=== PATIENT | male | born 2000 | race American Indian/Alaskan Native ===

== ENCOUNTER 2021-05-22 14:16 | Emergency (ER) | payer MEDICAID ==
--- NOTE | 2021-05-22 18:27 | Emergency Department Report ---
ED ENT HPI - General Chief complaint: Sore Throat Stated complaint: INFLAMMED TONSILS Time Seen by Provider: 05/22/21 18:16 Source: patient Mode of arrival: Ambulatory Limitations: No Limitations - History of Present Illness Initial comments: 20-year-old black male with no past medical history presents to the emergency department for evaluation of 1 day history of swollen tonsils and sore throat. He denies fever, headache, or abdominal pain, but states they the same symptoms every year. He states that it is painful to swallow. MD complaint: sore throat -: Gradual, days(s) (1) Location: throat Severity: moderate Severity scale (0 -10): 7 Consistency: constant Worsens with: swallowing Associated Symptoms: pain with swallowing, sore throat. denies: fever, cough, toothache, tinnitus, hearing loss, discharge from ear, rhinorrhea - Related Data Previous Rx's Medication Instructions Recorded Last Taken Type Amoxicillin [Trimox CAP] 500 mg PO BID 10 Days #20 capsule 05/22/21 Unknown Rx Nystas/Diphen/Xyl Visc/Mylanta 30 ml PO TID #420 udc 05/22/21 Unknown Rx [Magic Mouthwash] Prednisone [predniSONE 10 mg 10 mg PO .TAPER #1 tab 05/22/21 Unknown Rx (6-Day Pack, 21 Tabs)] Allergies Allergy/AdvReac Type Severity Reaction Status Date / Time No Known Allergies Allergy Verified 05/22/21 15:26 ED Dental HPI - General Chief complaint: Sore Throat Stated complaint: INFLAMMED TONSILS Time Seen by Provider: 05/22/21 18:16 Source: patient Mode of arrival: Ambulatory Limitations: No Limitations - Related Data Previous Rx's Medication Instructions Recorded Last Taken Type Amoxicillin [Trimox CAP] 500 mg PO BID 10 Days #20 capsule 05/22/21 Unknown Rx Nystas/Diphen/Xyl Visc/Mylanta 30 ml PO TID #420 udc 05/22/21 Unknown Rx [Magic Mouthwash] Prednisone [predniSONE 10 mg 10 mg PO .TAPER #1 tab 05/22/21 Unknown Rx (6-Day Pack, 21 Tabs)] Allergies Allergy/AdvReac Type Severity Reaction Status Date / Time No Known Allergies Allergy Verified 05/22/21 15:26 ED Review of Systems ROS: Stated complaint: INFLAMMED TONSILS Other details as noted in HPI Comment: All other systems reviewed and negative Constitutional: denies: chills, diaphoresis, fever, malaise, weakness Eyes: denies: eye pain, eye discharge, vision change ENT: throat pain. denies: ear pain, dental pain, hearing loss, epistaxis, congestion Respiratory: denies: cough, shortness of breath, SOB with exertion, SOB at rest Cardiovascular: denies: chest pain, palpitations, dyspnea on exertion, orthopnea, edema, syncope, paroxysmal nocturnal dyspnea Endocrine: no symptoms reported Gastrointestinal: denies: abdominal pain, nausea, vomiting, diarrhea, melena, hematochezia Genitourinary: denies: urgency, dysuria, frequency, hematuria, discharge, testicular pain Musculoskeletal: denies: back pain Skin: denies: rash, lesions Neurological: denies: headache, weakness, numbness, paresthesias Psychiatric: denies: anxiety, depression Hematological/Lymphatic: denies: easy bleeding, swollen glands ED Past Medical Hx - Medications Home Medications: Home Medications Medication Instructions Recorded Confirmed Last Taken Type Amoxicillin [Trimox CAP] 500 mg PO BID 10 Days #20 capsule 05/22/21 Unknown Rx Nystas/Diphen/Xyl Visc/Mylanta 30 ml PO TID #420 udc 05/22/21 Unknown Rx [Magic Mouthwash] Prednisone [predniSONE 10 mg 10 mg PO .TAPER #1 tab 05/22/21 Unknown Rx (6-Day Pack, 21 Tabs)] ED Physical Exam - General Limitations: No Limitations General appearance: alert, in no apparent distress - Head Head exam: Present: atraumatic, normocephalic - Eye Eye exam: Present: normal appearance. Absent: scleral icterus, conjunctival injection - ENT ENT exam: Absent: normal exam - Expanded ENT Exam Expanded Throat exam: Positive: tonsillar erythema, tonsillomegaly, tonsillar exudate. Negative: normal inspection (Erythema and exudate noted to posterior oropharynx), R peritonsillar mass, L peritonsillar mass - Neck Neck exam: Present: normal inspection, lymphadenopathy (Anterior cervical) - Respiratory Respiratory exam: Present: normal lung sounds bilaterally. Absent: respiratory distress, wheezes, rales, rhonchi, stridor, chest wall tenderness, accessory muscle use - Cardiovascular Cardiovascular Exam: Present: regular rate, normal heart sounds - GI/Abdominal GI/Abdominal exam: Present: soft. Absent: distended, tenderness, guarding, rebound, rigid, normal bowel sounds - Back Exam Back exam: Present: normal inspection - Neurological Exam Neurological exam: Present: alert, oriented X3 - Psychiatric Psychiatric exam: Present: normal affect, normal mood - Skin Skin exam: Present: warm, dry, intact, normal color ED Course Vital Signs 05/22/21 05/22/21 05/22/21 15:28 18:40 18:58 Temperature 98.3 F 98.2 F 98.4 F Pulse Rate 67 68 69 Respiratory 16 18 18 Rate Blood Pressure 128/76 124/73 124/73 [Left] O2 Sat by Pulse 100 100 100 Oximetry ED Medical Decision Making - Medical Decision Making 20-year-old black male with no past medical history presents to the emergency department for evaluation of 1 day history of swollen tonsils and sore throat. He denies fever, headache, or abdominal pain, but states they the same symptoms every year. He states that it is painful to swallow. Patient noted to have erythematous, edematous and exudate filled tonsils with right greater than left. Patient also noted to have anterior cervical lymphadenopathy. Patient has history of recurrent strep and tonsillitis. He will be treated with 7-day course of amoxicillin along with steroid Dosepak. He was advised to take medications as prescribed and follow-up with primary care provider if no improvement or worsening symptoms. He verbalized understanding of and agreement with plan of care. Critical care attestation.: If time is entered above; I have spent that time in minutes in the direct care of this critically ill patient, excluding procedure time. ED Disposition Clinical Impression: Exudative pharyngitis, Tonsillitis Disposition: HOME / SELF CARE / HOMELESS Is pt being admited?: No Does the pt Need Aspirin: No Condition: Stable Instructions: Tonsillitis, [id number], Strep Throat, Adult, [id number] Additional Instructions: Take medication as prescribed. Follow-up with primary care provider as needed. Prescriptions: Nystas/Diphen/Xyl Visc/Mylanta [Magic Mouthwash] 30 ml PO TID #420 udc Prednisone [predniSONE 10 mg (6-Day Pack, 21 Tabs)] 10 mg PO .TAPER #1 tab Amoxicillin [Trimox CAP] 500 mg PO BID 10 Days #20 capsule Referrals: RADHA IBRAHIM MD [Staff Physician] - 3-5 Days Forms: Work/School Release Form(ED) Time of Disposition: 18:28
[2021-05-22 18:41] VITALS: BP 124/73
== END 2021-05-22 18:58 | disposition home or self-care (01) ==
LOC: ED 14:16
DX: J03.90 Acute tonsillitis, unspecified (principal)
CPT/HCPCS: 87116; 87430; 99283

== ENCOUNTER → 2021-12-06 | Emergency (ER) | payer BC, MEDICAID ==
[2021-12-06 17:11] VITALS: BP 122/84
[2021-12-06 19:31] LABS: Basophils % (Auto) 0.4 % (0.0-1.8); Hematocrit 46.9 % (35.5-45.6); Hemoglobin 16.1 gm/dl (11.8-15.2); Lymphocytes # (Auto) 1.5 K/mm3 (1.2-5.4); Lymphocytes % (Auto) 13.5 % (13.4-35.0); Mean Corpuscular HGB Conc 34 % (32-34); Mean Corpuscular Volume 87 fl (84-94); Monocytes % (Auto) 8.6 % (0.0-7.3); Platelet Count 136 K/mm3 (140-440); Red Blood Count 5.41 M/mm3 (3.65-5.03); Red Cell Distribution Width 14.1 % (13.2-15.2)
[2021-12-06 19:42] LABS: Alanine Aminotransferase 22 units/L (7-56); Albumin 4.9 g/dL (3.9-5); BUN/Creatinine Ratio 7; Blood Urea Nitrogen 8 mg/dL (9-20); Calcium 9.4 mg/dL (8.4-10.2); Hemolysis Index 1
== END ==
LOC: ED 17:01
DX: R11.2 Nausea with vomiting, unspecified (principal); Z53.21 Procedure and treatment not carried out due to patient leaving prior to being seen by health care provider
CPT/HCPCS: 36415; 80053; 83690; 85025